=== PATIENT | female | born 1980 | race Caucasian/White ===

== ENCOUNTER 2021-02-25 07:51 | Emergency (ER) | payer SELFPAY ==
[~2021-02-25] VITALS: Ht 165.1 cm; Wt 66.0 kg
--- NOTE | 2021-02-25 08:22 | PHYS DOC ---
Past Medical History Past Medical History: No Pertinent History Past Surgical History: Smoking Status: Never Smoker Alcohol Use: None Drug Use: None General Adult EDM: Chief Complaint: SEXUALLY TRANSMITTED DISEASE HPI: HPI: 40-year-old female presenting with signs and symptoms of an STD. She was re cently exposed to gonorrhea her partner had been tested and tested positive. She has had increased vaginal discharge. She denies abdominal pain fever. She does have intermittent spotting outside of her periods. She does not believe she is . Her discharge started within the past week. It is foul- smelling. Location . Duration intermittent. No alleviating or exacerbating factors. Review of systems negative for chest pain shortness of breath vomiting fevers chills or any new rashes. She denies any lesions to the external genitalia. She denies any exposure to any other STDs other than gonorrhea. All other review of systems negative. ED course: 40-year-old female presenting with Noe to gonorrhea with increasing vaginal discharge. Urine analysis and test ordered along with treatment with Rocephin azithromycin a wet prep and a self swab for gonorrhea and chlamydia. Patient treated with Flagyl for treatment of vaginitis from trichomoniasis and bacterial vaginosis. Patient treated for UTI with Macrobid. Will discharge to follow-up with health department in 2 days for comprehensive STD evaluation. Also follow-up with PCP in 1 to 2 days for outpatient follow-up. Review of Systems: Review of Systems: Constitutional: Denies fever or chills. [] Eyes: Denies change in visual acuity. [] HENT: Denies nasal congestion or sore throat. [] Respiratory: Denies cough or shortness of breath. [] Cardiovascular: Denies chest pain or edema. [] GI: Denies abdominal pain, nausea, vomiting, bloody stools or diarrhea. [] : Denies dysuria. [] Musculoskeletal: Denies back pain or joint pain. [] Integument: Denies rash. [] Neurologic: Denies headache, focal weakness or sensory changes. [] Endocrine: Denies polyuria or polydipsia. [] Lymphatic: Denies swollen glands. [] Psychiatric: Denies depression or anxiety. [] Heart Score: C/O Chest Pain: No Risk Factors: Risk Factors: DM, Current or recent (<one month) smoker, HTN, HLP, family history of CAD, obesity. Risk Scores: Score 0 - 3: 2.5% MACE over next 6 weeks - Discharge Home Score 4 - 6: 20.3% MACE over next 6 weeks - Admit for Clinical Observation Score 7 - 10: 72.7% MACE over next 6 weeks - Early Invasive Strategies Physical Exam: PE: Constitutional: Well developed, well nourished, no acute distress, non-toxic appearance. [] HENT: Normocephalic, atraumatic, bilateral external ears normal, oropharynx moist, no oral exudates, nose normal. [] Eyes: PERRLA, EOMI, conjunctiva normal, no discharge. [] Neck: Normal range of motion, no tenderness, supple, no stridor. [] Cardiovascular:Heart rate regular rhythm, no murmur [] Lungs & Thorax: Bilateral breath sounds clear to auscultation [] Abdomen: Bowel sounds normal, soft, no tenderness, no masses, no pulsatile masses. [] Negative McBurney's point. Negative Dillon sign. No rebound tenderness or guarding. exam deferred. Patient will self swab. Skin: Warm, dry, no erythema, no rash. [] Back: No tenderness, no CVA tenderness. [] Extremities: No tenderness, no cyanosis, no clubbing, ROM intact, no edema. [] Neurologic: Alert and oriented X 3, normal motor function, normal sensory function, no focal deficits noted. [] Psychologic: Affect normal, judgement normal, mood normal. [] EKG: EKG: [] Radiology/Procedures: Radiology/Procedures: [] Course & Med Decision Making: Course & Med Decision Making Pertinent Labs and Imaging studies reviewed. (See chart for details) [] Dragon Disclaimer: Dragon Disclaimer: This electronic medical record was generated, in whole or in part, using a voice recognition dictation system. Departure Departure Impression: Primary Impression: Vaginal discharge Additional Impressions: Trichomoniasis Bacterial vaginosis Disposition: 01 DC HOME SELF CARE/HOMELESS Condition: STABLE Patient Instructions: Bacterial Vaginosis, Sexually Transmitted Disease, Trichomoniasis Additional Instructions: EMERGENCY DEPARTMENT GENERAL DISCHARGE INSTRUCTIONS Follow-up with your primary physician in 1 to 2 days. You will need to follow- up with the health department for more comprehensive sexually transmitted disease investigation within the next 1 to 2 days. They are more fully equipped to evaluate for all the STDs. Return to the emergency department if you have any new or concerning findings. Thank you for coming to [facility] Emergency Department (ED) today and trusting us with you care. We trust that you had a positive experience in our Emergency Department. If you wish to speak to the department management, you may call the Director at [phone]. Follow up is important in emergency/acute care visits. This condition should be evaluated by your primary care physician and any necessary consulting services for continued management within a few days (1-2) after discharge. Return to the emergency department if you have any new or concerning symptoms including but not limited to fever, chills, nausea, vomiting, intractable pain, any new rashes, chest pain, shortness of breath, uncontrolled bleeding, difficulty breathing, and/or vision loss. 1. Do you have a private Doctor? If you do not have a private doctor, please ask for a resource list of physicians or clinics that may be able to assist you with follow up care. 2. If a lab test or culture has been done and does not come back immediately, your results will be reviewed and you will be notified if you need a change in treatment. 3. Your care today has been supervised by a physician who is specially trained in emergency care. Many problems require more than one evaluation for a complete diagnosis and treatment. We recommend that you schedule your follow up appointment as recommended to ensure complete treatment of you illness or injury. If you are unable to obtain follow up care and continue to have a problem, or if your condition worsens, we recommend that you return to the ED. 4. We are not able to safely determine your condition over the phone nor are we able to give sound medical advice over the phone. For these safety reasons, if you call for medical advice we will ask you to come to the ED for further evaluation. IF YOUR SYMPTOMS WORSEN OR NEW SYMPTOMS DEVELOP, OR YOU HAVE CONCERNS ABOUT YOUR CONDITION; OR IF YOUR CONDITION WORSENS WHILE YOU ARE WAITING FOR YOUR FOLLOW UP APPOINTMENT; EITHER CONTACT YOUR PRIMARY CARE DOCTOR, THE PHYSICIAN WHOSE NAME AND NUMBER YOU WERE GIVEN, OR RETURN TO THE ED IMMEDIATELY. Scripts Nitrofurantoin Monohyd/M-Cryst (MACROBID [id number] MG CAPSULE) 100 Mg Capsule 1 CAP PO BID, #10 CAP Prov: PATRICIO PEREZ MD 02/25/21 Metronidazole (FLAGYL) 500 Mg Tablet 1 TAB PO BID, #14 TAB Prov: PATRICIO PEREZ MD 02/25/21 PATRICIO PEREZ MD Feb 25, 2021 08:22
[2021-02-25] MEDS ORDERED: AZITHROMYCIN 250 MG TABLET. PO ONE (08:30)
[2021-02-25] MEDS ORDERED: cefTRIAXone IM 250 MG VIAL IM ONE (08:30)
[2021-02-25 08:33] VITALS: BP 127/72
[2021-02-25 08:45] LABS: BILIRUBIN,URINE NEGATIVE (NEG); CLARITY,URINE CLEAR; COLOR,URINE YELLOW; NITRITE,URINE NEGATIVE (NEG); PROTEIN,URINE NEGATIVE (NEG-TRACE); UROBILINOGEN,URINE 0.2 mg/dL (0.2 mg/dL)
[2021-02-25 09:08] LABS: BACTERIA,URINE FEW /HPF (0-FEW); WBC,URINE 20-40 /HPF (0-4)
[2021-02-25] MEDS ORDERED: METR500T PO (09:36)
[2021-02-25] MEDS ORDERED: NITR100C62 PO (09:37)
[2021-02-25 09:56] LABS: U PREG PATIENT NEGATIVE (NEG)
[2021-02-26 18:13] LABS: GC PROBE Positive (Negative)
== END 2021-02-25 11:00 | disposition home or self-care (01) ==
LOC: ER 07:51
DX: A59.9 Trichomoniasis, unspecified (principal); N76.0 Acute vaginitis; B96.89 Other specified bacterial agents as the cause of diseases classified elsewhere
CPT/HCPCS: 81001; 81025; 87086; 87491; 87591; 96372; 99283; J0696; Q0111